=== PATIENT | male | born 1990 | race Caucasian/White ===

== ENCOUNTER 2019-02-25 20:58 | Emergency (ER) | payer OTHER ==
[2019-02-25] MEDS ORDERED: SODIUM CHLORIDE 0.9% 1,000 ML IV STA (21:21)
[2019-02-25] MEDS ORDERED: ASPIRIN 81 MG PO STA (21:21)
--- NOTE | 2019-02-25 21:38 | ED ---
Chest Pain HPI - General Chief Complaint: Chest Pain Stated Complaint: High BP,Irregular Heart Beat Time Seen by Provider: 02/25/19 21:21 Source: patient, family Mode of arrival: ambulatory Limitations: no limitations - History of Present Illness Initial Comments: Leodan is a previously healthy 28 her old male who presents the emergency department today for evaluation of palpitations. Patient reports that yesterday afternoon he was playing Frisbee, he felt that his heart rate got elevated however after resting he felt that his heart rate did not go back down. He then began to feel that he couldn't catch his breath, his hands and feet went numb. Patient reports he got up and walked around for a little bit and began to feel better. Patient states that today he is feeling better until something startled them in his heart began racing again he began feeling like he couldn't catch his breath he was breathing fast there is tightness in his chest since this happened 2 days in a row he decided to come to the ER for evaluation. Patient has no known cardiac history, no history of DVT or PE no family history of clotting disorder. On arrival in the emergency department the patient is asymptomatic. - Related Data Home Medications Medication Instructions Recorded Confirmed No Known Home Medications 02/25/19 02/25/19 Allergies Allergy/AdvReac Type Severity Reaction Status Date / Time No Known Allergies Allergy Verified 02/25/19 21:14 Review of Systems ROS Statement: Those systems with pertinent positive or pertinent negative responses have been documented in the HPI. ROS Other: All systems not noted in ROS Statement are negative. EKG Findings - EKG Comments: EKG Findings:: EKG was obtained due to complaint of chest pain, EKG obtained at 2138, rate is 84 rhythm is sinus and normal axis are normal intervals, SC 148, QRS 88, QTC 437. There are no acute ST elevations or depressions there is no evidence of acute ischemia, infarction or arrhythmia. Past Medical History Past Medical History: No Reported History History of Any Multi-Drug Resistant Organisms: None Reported Past Surgical History: No Surgical Hx Reported Past Psychological History: No Psychological Hx Reported Smoking Status: Current every day smoker Past Alcohol Use History: Occasional Past Drug Use History: Marijuana General Exam - General Exam Comments Initial Comments: Physical Exam GENERAL: Patient is well-developed and well-nourished. Patient is nontoxic and well- hydrated and is in no distress. HENT: Normocephalic, Atraumatic. EYES: PERRL, EOMI PULMONARY: Unlabored respirations. No audible rales rhonchi or wheezing was noted. CARDIOVASCULAR: There is a regular rate and rhythm without any murmurs gallops or rubs. ABDOMEN: Soft and nontender with normal bowel sounds. SKIN: Skin is clear with no lesions or rashes and otherwise unremarkable. : Deferred NEUROLOGIC: Patient is alert and oriented x3. Moving all extremities spontaneously MUSCULOSKELETAL: Normal extremities with adequate strength and full range of motion. No lower extremity swelling or edema. No calf tenderness. PSYCHIATRIC: Normal psychiatric evaluation. Limitations: no limitations Course Vital Signs 02/25/19 02/25/19 02/25/19 21:04 22:30 23:04 Temperature 97.4 F L 98.7 F Pulse Rate 96 76 73 Respiratory 20 18 20 Rate Blood Pressure 142/92 130/91 138/78 O2 Sat by Pulse 98 96 98 Oximetry Chest Pain [facility] The patient was seen and evaluated, history is obtained from the patient signed history and physical exam are concerning for likely hyperventilation as the patient seemed to have palpitations rapid breathing and his hands and feet went numb, he does have a family history of cardiac disease and his maternal grandfat her who at the age of 55. We will obtain labs EKG and chest x-ray. Considering that the patient's chest pain began yesterday I feel a single troponin will be adequate to assess for any cardiac etiology of his symptoms. Labs including troponin, d-dimer and TSH are within normal limits. EKG was normal sinus rhythm with no acute findings. Chest x-ray was unremarkable. At this time patient will be discharged home with plan for outpatient follow-up. Disposition Clinical Impression: Heart palpitations, Hyperventilation Disposition: HOME SELF-CARE Condition: Stable Instructions (If sedation given, give patient instructions): Heart Palpitations (DC), Hyperventilation (ED) Is patient prescribed a controlled substance at d/c from ED?: No Referrals: Zacarias Walker MD [Primary Care Provider] - 1-2 days
[2019-02-25 21:47] LABS: Basophils % (A) 0 %; Eosinophils # (A) 0.2 k/uL (0-0.7); Eosinophils % (A) 2 %; HGB 14.8 gm/dL (13.0-17.5); Lymphocytes # (A) 2.8 k/uL (1.0-4.8); Lymphocytes % (A) 30 %; MCH 29.7 pg (25.0-35.0); MCHC 34.5 g/dL (31.0-37.0); MCV 86.1 fL (80.0-100.0); Mean Platelet Volume 8.6; Monocytes # (A) 0.5 k/uL (0-1.0); Monocytes % (A) 6 %; Neutrophils # (A) 5.8 k/uL (1.3-7.7); Neutrophils % (A) 61 %; Platelet Count 176 k/uL (150-450); RDW 15.1 % (11.5-15.5); WBC 9.5 k/uL (3.8-10.6)
--- NOTE | 2019-02-25 21:51 | XR ---
EXAMINATION TYPE: XR chest 2V DATE OF EXAM: 02/25/2019 COMPARISON: NONE HISTORY: Chest tightness and pain TECHNIQUE: Frontal and lateral views of the chest are obtained. FINDINGS: Heart and mediastinum are normal. Lungs are clear. Diaphragm is normal. Bony thorax appear s normal. IMPRESSION: Normal chest
[2019-02-25 21:56] LABS: ALT 36 U/L (21-72); AST 25 U/L (17-59); African American GFR (CKD) >90 (>60 ml/min/1.73 sqM); Albumin 4.6 g/dL (3.5-5.0); Alkaline Phosphatase 49 U/L (38-126); Anion Gap 10 mmol/L; Blood Urea Nitrogen 16 mg/dL (9-20); Calcium 9.8 mg/dL (8.4-10.2); Carbon Dioxide 22 mmol/L (22-30); Chloride 106 mmol/L (98-107); Glucose 92 mg/dL (74-99); Magnesium 2.1 mg/dL (1.6-2.3); Potassium 3.6 mmol/L (3.5-5.1); Sodium 138 mmol/L (137-145); Total Bilirubin 0.3 mg/dL (0.2-1.3); Total Protein 7.3 g/dL (6.3-8.2)
[2019-02-25 22:03] LABS: Appearance,Urine Clear (Clear); Bilirubin,Urine Negative (Negative); Blood,Urine Negative (Negative); Color,Urine Yellow; Glucose,Urine (UA) Negative (Negative); Ketones,Urine Negative (Negative); Leukocyte Esterase,Urine Negative (Negative); Nitrite,Urine Negative (Negative); Protein,Urine Negative (Negative); Urobilinogen,Urine <2.0 mg/dL (<2.0)
[2019-02-25 22:12] LABS: D-Dimer 0.21 mg/L FEU (<0.60); INR 0.9 (<1.2); Partial Thromboplastin Time 25.1 sec (22.0-30.0); Prothrombin Time 10.1 sec (9.0-12.0)
[2019-02-25 22:13] LABS: Amphetamine Screen,Urine Not Detected (NotDetected); Barbiturate Screen,Urine Not Detected (NotDetected); Benzodiazepines Screen,Urine Detected (NotDetected); Cocaine Screen,Urine Not Detected (NotDetected); Methadone Screen, Urine Not Detected (NotDetected); Opiate Screen,Urine Not Detected (NotDetected); Oxycodone Screen, Urine Not Detected (NotDetected); Phencyclidine Screen,Urine Not Detected (NotDetected); Tricyclic Antidepressant,Urine Not Detected (NotDetected); Urn Cannabinoid Scrn Detected (NotDetected)
[2019-02-25 23:06] VITALS: BP 138/78; PULSE 73; RESP 20; TEMP 98.7
== END 2019-02-25 23:06 | disposition home or self-care (01) ==
LOC: EC 20:58
DX: R00.2 Palpitations (principal); R06.4 Hyperventilation; R07.89 Other chest pain; F17.200 Nicotine dependence, unspecified, uncomplicated; Z82.49 Family history of ischemic heart disease and other diseases of the circulatory system
CPT/HCPCS: 36415; 71046; 80053; 80306; 81003; 83735; 83880; 84443; 84484; 85025; 85379; 85610; 85730; 93005; 96360; 99285